=== PATIENT | female | born 1980 | race African-American/Black ===

== ENCOUNTER 2019-02-04 21:39 | Emergency (ER) | payer MEDICAID, OTHER ==
[~2019-02-04] VITALS: Ht 162.6 cm; Wt 90.7 kg
[2019-02-04 22:39] VITALS: BP 155/76
[2019-02-04 23:05] LABS: Basophils # (auto) 0.1 uL; Basophils % (auto) 0.7 % (0.0-2.0); Eosinophils # (auto) 0.1 uL; Eosinophils % (auto) 0.8 % (0.0-7.0); Hematocrit 38.4 % (36.0-46.0); Lymphocytes # (auto) 3.3 uL; Lymphocytes % (auto) 30.5 % (10.0-50.0); Mean Corpuscular Hgb Conc. 33.8 g/dL (32.0-36.0); Mean Corpuscular Volume 91.5 fL (80.0-100.0); Monocytes # (auto) 0.5 uL; Monocytes % (auto) 5.1 % (0.0-12.0); Neutrophils # (auto) 6.7 uL; Neutrophils % (auto) 62.9 % (37.0-80.0); Nucleated Red Blood Cells % 0.1 %; Platelet Count (auto) 362 10^3/uL (140-450); White Blood Cell 10.7 10^3/uL (4.4-10.8)
[2019-02-04 23:23] LABS: Potassium 4.3 mmol/L (3.5-5.1)
[2019-02-04 23:27] LABS: Albumin 3.1 g/dL (3.4-5.0); BUN/Creatinine Ratio 17.5; Calcium 8.4 mg/dL (8.5-10.1)
[2019-02-04 23:30] LABS: Bilirubin, Total 0.3 mg/dL (0.2-1.0); Total Protein 7.8 g/dL (6.4-8.2)
[2019-02-05] MEDS ORDERED: cefTRIAXone SOD 1,000 MG VL IM ONE (02:15)
[2019-02-05] MEDS ORDERED: cefTRIAXone 1GM/50ML D5W 50 ML IV ONE (02:15)
== END 2019-02-05 03:46 | disposition home or self-care (01) ==
LOC: EDBD 21:39 → ER 21:39
DX: L03.115 Cellulitis of right lower limb (principal); E11.9 Type 2 diabetes mellitus without complications; E78.5 Hyperlipidemia, unspecified; I10 Essential (primary) hypertension
CPT/HCPCS: 36415; 73700; 80053; 85025; 87040; 96372; 99284; J0696

== ENCOUNTER 2019-04-11 22:09 | Inpatient (IN) | payer MEDICAID ==
[~2019-04-11] VITALS: Ht 165.1 cm; Wt 98.9 kg
[2019-04-11 23:10] LABS: Basophils # (auto) 0 10 ^3/uL (0-0.2); Basophils % (auto) 0.4 % (0.0-2.0); Eosinophils # (auto) 0.1 10 ^3/uL (0-0.8); Eosinophils % (auto) 0.7 % (0.0-7.0); Hematocrit 39.8 % (36.0-46.0); Hemoglobin 13.4 g/dL (12.2-16.2); Lymphocytes # (auto) 2.4 10 ^3/uL (0.4-5.4); Lymphocytes % (auto) 27.2 % (10.0-50.0); Mean Corpuscular Hemoglobin 31.2 pg (28.0-32.0); Mean Corpuscular Hgb Conc. 33.6 g/dL (32.0-36.0); Mean Corpuscular Volume 92.8 fL (80.0-100.0); Monocytes # (auto) 0.6 10 ^3/uL (0-1.3); Monocytes % (auto) 6.6 % (0.0-12.0); Neutrophils # (auto) 5.7 10 ^3/uL (1.6-8.6); Neutrophils % (auto) 65.1 % (37.0-80.0); Platelet Count (auto) 418 10^3/uL (140-450); Red Blood Cells 4.29 10^6/uL (4.0-5.20); White Blood Cell 8.8 10^3/uL (4.4-10.8)
[2019-04-11 23:29] LABS: Alanine Aminotransferase 15 U/L (13-56); Anion Gap 6 (5-15); Aspartate Aminotransferase 8 U/L (15-37); BUN/Creatinine Ratio 13.5; Blood Urea Nitrogen 19 mg/dL (7-18); Calcium 8.7 mg/dL (8.5-10.1); Carbon Dioxide 28 mmol/L (21-32); Chloride 103 mmol/L (98-107); GFR African American 53 mL/min; GFR Non-African American 44 mL/min; Glucose 215 mg/dL (74-106); Potassium 3.5 mmol/L (3.5-5.1); Sodium 137 mmol/L (136-145)
[2019-04-11 23:34] LABS: Alkaline Phosphatase 112 U/L (45-117); Bilirubin, Total 0.5 mg/dL (0.2-1.0); Total Protein 7.7 g/dL (6.4-8.2)
[2019-04-11 23:49] LABS: INR 0.97 (0.9-1.15); Partial Thromboplastin Time 30.1 sec (23.64-32.05)
[2019-04-12] MEDS ORDERED: ONDANSETRON HCL 4 MG/2 ML VIAL IV ONE (00:30)
[2019-04-12] MEDS ORDERED: MORPHINE SULFATE 4 MG/ML SYR/VIAL IV ONE (00:30)
[2019-04-12] MEDS ORDERED: HYDROmorphone HCL 2 MG/ML VL IV ONE (01:00)
[2019-04-12] MEDS ORDERED: cloNIDine HCL 0.1 MG TAB PO ONE (02:15)
[2019-04-12] MEDS ORDERED: cefTRIAXone 1GM/50ML D5W 50 ML IV ONE (02:15)
[2019-04-12] MEDS ORDERED: cloNIDine HCL 0.1 MG TAB PO PRN (05:45)
[2019-04-12] MEDS ORDERED: MORPHINE SULF INJ 2 MG/ML SYRINGE 1ML IV PRN (05:45)
[2019-04-12] MEDS ORDERED: ONDANSETRON HCL 4 MG/2 ML VIAL IV PRN (05:45)
[2019-04-12] MEDS ORDERED: NITROGLYCERIN 0.4 MG SL TAB SL PRN (05:45)
[2019-04-12] MEDS ORDERED: TEMAZEPAM 15 MG CAP PO PRN (05:45)
[2019-04-12] MEDS ORDERED: ACETAMINOPHEN 325 MG TAB PO PRN (05:45)
[2019-04-12] MEDS ORDERED: DEXTROSE (50%) 50ML SYRG IV PRN (05:45)
[2019-04-12] MEDS ORDERED: CLINDAMYCIN 600MG IV 50 ML IV SCH (06:00)
[2019-04-12] MEDS: ACCU-CHEK COMFORT CURVE STRIP VI SCH ×4 (07:40→23:46)
[2019-04-12] MEDS: InsuLIN REG 1unit/0.01ml Soln (100units/ml) SC SCH ×4 (07:41→23:51)
[2019-04-12 08:00] VITALS: BP 125/88
[2019-04-12] MEDS ORDERED: ADENOSINE 89 MG in GIVE UN-DILUTED 0 ML IV STA (08:32)
[2019-04-12 09:00] VITALS: BP 125/88
[2019-04-12] MEDS ORDERED: cefTRIAXone 1GM/50ML D5W 50 ML IV SCH (09:00)
[2019-04-12] MEDS: ASPirin 81 mg TAB PO SCH (10:00)
[2019-04-12] MEDS: METOPROLOL TARTRATE 25 MG TAB PO SCH ×2 (10:00→22:19)
[2019-04-12] MEDS: GABAPENTIN 100 MG CAP PO SCH ×2 (10:00→22:19)
[2019-04-12] MEDS: PANTOPRAZOLE 40 MG TAB PO SCH (10:01)
[2019-04-12] MEDS: traMADol HCL 50 MG TAB PO PRN ×2 (10:08→17:54)
[2019-04-12 13:00] VITALS: BP 129/54
[2019-04-12] MEDS ORDERED: MAGNESIUM OXIDE 400 MG TAB PO ONE (15:15)
[2019-04-12 16:25] VITALS: BP 126/71
[2019-04-12 20:20] VITALS: BP 131/66
[2019-04-12] MEDS ORDERED: ATORVASTATIN 20 MG TAB PO SCH (22:00)
[2019-04-12] MEDS ORDERED: INSULIN LANTUS (GLARGINE) 1 /0.01ml (100units/ml) SC SCH (22:00)
[2019-04-12 22:09] VITALS: BP 131/66
[2019-04-13 05:10] VITALS: BP 136/89
[2019-04-13] MEDS: HYDROcodone-ACET 10/325MG TAB PO PRN ×2 (05:26→09:22)
[2019-04-13] MEDS: ACCU-CHEK COMFORT CURVE STRIP VI SCH ×2 (06:08→11:38)
[2019-04-13] MEDS: InsuLIN REG 1unit/0.01ml Soln (100units/ml) SC SCH ×2 (06:09→11:38)
[2019-04-13 06:33] LABS: Basophils # (auto) 0 10 ^3/uL (0-0.2); Basophils % (auto) 0.5 % (0.0-2.0); Eosinophils # (auto) 0.1 10 ^3/uL (0-0.8); Eosinophils % (auto) 1.3 % (0.0-7.0); Hematocrit 32.1 % (36.0-46.0); Hemoglobin 10.9 g/dL (12.2-16.2); Lymphocytes # (auto) 2.5 10 ^3/uL (0.4-5.4); Lymphocytes % (auto) 39.8 % (10.0-50.0); Mean Corpuscular Hemoglobin 31.3 pg (28.0-32.0); Mean Corpuscular Hgb Conc. 33.8 g/dL (32.0-36.0); Mean Corpuscular Volume 92.5 fL (80.0-100.0); Monocytes # (auto) 0.5 10 ^3/uL (0-1.3); Neutrophils # (auto) 3.1 10 ^3/uL (1.6-8.6); Neutrophils % (auto) 50.4 % (37.0-80.0); Platelet Count (auto) 337 10^3/uL (140-450); Red Blood Cells 3.47 10^6/uL (4.0-5.20); Red Cell Distribution Width 13.7 % (11.8-14.3); White Blood Cell 6.2 10^3/uL (4.4-10.8)
[2019-04-13 07:03] LABS: Potassium 3.2 mmol/L (3.5-5.1)
[2019-04-13 07:13] LABS: Albumin 2.4 g/dL (3.4-5.0); BUN/Creatinine Ratio 14.8; Bilirubin, Total 0.4 mg/dL (0.2-1.0); Total Protein 6.2 g/dL (6.4-8.2)
[2019-04-13 09:00] VITALS: BP_SYST 118; BP_SYST 120; BP_DIAS 79; BP_DIAS 80
[2019-04-13] MEDS: PANTOPRAZOLE 40 MG TAB PO SCH (09:22)
[2019-04-13] MEDS: GABAPENTIN 100 MG CAP PO SCH (09:22)
[2019-04-13] MEDS: ASPirin 81 mg TAB PO SCH (09:22)
[2019-04-13] MEDS: METOPROLOL TARTRATE 25 MG TAB PO SCH (09:24)
[2019-04-13] MEDS: traMADol HCL 50 MG TAB PO PRN (14:15)
[2019-04-13] MEDS ORDERED: POTASSIUM CHL 20 Meq TABLET PO ONE (15:00)
[2019-04-13 15:30] VITALS: BP 126/76
[2019-04-13 17:00] VITALS: BP 155/90
== END 2019-04-13 18:20 | disposition home or self-care (01) | DRG 203 ==
LOC: ER 22:14 → TELE 22:15 → TELE-WESTW 04-12 06:25
PROVIDERS: ADMIT Nurse Practitioner; ATTEND Internal Medicine
PROC: 0HBRXZZ Excision of Toe Nail, External Approach (ICD-10-PCS; principal; 2019-04-13)
DX: M94.0 Chondrocostal junction syndrome [Tietze] (principal); E11.42 Type 2 diabetes mellitus with diabetic polyneuropathy; E11.22 Type 2 diabetes mellitus with diabetic chronic kidney disease; E66.01 Morbid (severe) obesity due to excess calories; L03.115 Cellulitis of right lower limb; E11.621 Type 2 diabetes mellitus with foot ulcer; F17.210 Nicotine dependence, cigarettes, uncomplicated; B35.1 Tinea unguium; N18.3 Chronic kidney disease, stage 3 (moderate); L97.509 Non-pressure chronic ulcer of other part of unspecified foot with unspecified severity; E11.65 Type 2 diabetes mellitus with hyperglycemia; I12.9 Hypertensive chronic kidney disease with stage 1 through stage 4 chronic kidney disease, or unspecified chronic kidney disease; M77.30 Calcaneal spur, unspecified foot; E78.5 Hyperlipidemia, unspecified; I25.2 Old myocardial infarction; Z89.512 Acquired absence of left leg below knee; Z88.5 Allergy status to narcotic agent; Z88.0 Allergy status to penicillin; Z90.49 Acquired absence of other specified parts of digestive tract; Z68.36 Body mass index [BMI] 36.0-36.9, adult; Z83.3 Family history of diabetes mellitus; Z79.4 Long term (current) use of insulin
CPT/HCPCS: 36415; 71045; 73700; 78315; 78452; 80053; 82962; 83735; 83880; 84484; 85025; 85610; 85730; 93005; 93017; 93306; 96365; 96375; G0378; J0153; J0696; J1815; J2405

== ENCOUNTER → 2019-04-13 | Emergency (ER) | payer MEDICAID ==
[~2019-04-13] VITALS: Ht 165.1 cm; Wt 108.9 kg
[~2019-04-13] MED LIST: cloNIDine 0.2 mg/24hr 7DAY PATCH TD ONE; cloNIDine HCL 0.1 MG TAB PO ONE
[2019-04-13 21:23] LABS: Basophils # (auto) 0 10 ^3/uL (0-0.2); Basophils % (auto) 0.3 % (0.0-2.0); Eosinophils # (auto) 0.1 10 ^3/uL (0-0.8); Hematocrit 35.8 % (36.0-46.0); Hemoglobin 11.9 g/dL (12.2-16.2); Lymphocytes # (auto) 2.9 10 ^3/uL (0.4-5.4); Lymphocytes % (auto) 35.1 % (10.0-50.0); Mean Corpuscular Hgb Conc. 33.1 g/dL (32.0-36.0); Mean Corpuscular Volume 93.6 fL (80.0-100.0); Monocytes # (auto) 0.5 10 ^3/uL (0-1.3); Monocytes % (auto) 6.2 % (0.0-12.0); Neutrophils # (auto) 4.8 10 ^3/uL (1.6-8.6); Neutrophils % (auto) 57.4 % (37.0-80.0); Platelet Count (auto) 390 10^3/uL (140-450); Red Blood Cells 3.83 10^6/uL (4.0-5.20); Red Cell Distribution Width 13.8 % (11.8-14.3); White Blood Cell 8.3 10^3/uL (4.4-10.8)
[2019-04-13 21:38] LABS: Alanine Aminotransferase 15 U/L (13-56); Albumin 2.8 g/dL (3.4-5.0); Anion Gap 4 (5-15); Aspartate Aminotransferase 5 U/L (15-37); Blood Urea Nitrogen 18 mg/dL (7-18); Calcium 8.3 mg/dL (8.5-10.1); Carbon Dioxide 29 mmol/L (21-32); Chloride 104 mmol/L (98-107); GFR African American 55 mL/min; GFR Non-African American 45 mL/min; Glucose 152 mg/dL (74-106); Sodium 137 mmol/L (136-145)
[2019-04-13 21:43] LABS: Alkaline Phosphatase 99 U/L (45-117); Bilirubin, Total 0.3 mg/dL (0.2-1.0); Total Protein 7.2 g/dL (6.4-8.2)
[2019-04-14 02:00] VITALS: BP 120/66
== END | disposition home or self-care (01) ==
LOC: EDUNIT# 19:07 → EDBD 19:20 → ER 19:20
DX: R07.9 Chest pain, unspecified (principal); I10 Essential (primary) hypertension; E11.9 Type 2 diabetes mellitus without complications; E78.5 Hyperlipidemia, unspecified; I25.2 Old myocardial infarction; F17.210 Nicotine dependence, cigarettes, uncomplicated; Z90.49 Acquired absence of other specified parts of digestive tract; Z90.89 Acquired absence of other organs
CPT/HCPCS: 36415; 71045; 80053; 84484; 85025; 93005

== ENCOUNTER → 2019-04-14 | Emergency (ER) | payer MEDICAID ==
[~2019-04-14] VITALS: Ht 165.1 cm; Wt 108.9 kg
[~2019-04-14] MED LIST changes: +KETOROLAC TROMETH 15 mg/ml 1ML VL IV ONE; +cefTRIAXone 1GM/50ML D5W 50 ML IV ONE; -cloNIDine 0.2 mg/24hr 7DAY PATCH TD ONE; -cloNIDine HCL 0.1 MG TAB PO ONE
[2019-04-14 10:12] VITALS: BP 138/77
== END | disposition home or self-care (01) ==
LOC: ER 06:33
DX: R07.89 Other chest pain (principal); E11.65 Type 2 diabetes mellitus with hyperglycemia; L03.115 Cellulitis of right lower limb; E11.21 Type 2 diabetes mellitus with diabetic nephropathy; M10.371 Gout due to renal impairment, right ankle and foot; E66.01 Morbid (severe) obesity due to excess calories; I25.2 Old myocardial infarction; F17.210 Nicotine dependence, cigarettes, uncomplicated; I10 Essential (primary) hypertension; E78.5 Hyperlipidemia, unspecified; Z90.49 Acquired absence of other specified parts of digestive tract; Z90.89 Acquired absence of other organs; Z89.519 Acquired absence of unspecified leg below knee; Z88.0 Allergy status to penicillin; Z88.6 Allergy status to analgesic agent; Z68.39 Body mass index [BMI] 39.0-39.9, adult
CPT/HCPCS: 36415; 84550; 93005; 96365; 96366; 96375; 99284; J0696; J1885

== ENCOUNTER 2019-06-20 21:11 | Inpatient (IN) | payer MEDICAID ==
[~2019-06-20] VITALS: Ht 165.1 cm; Wt 99.7 kg
[2019-06-20 21:45] LABS: Basophils # (auto) 0 10 ^3/uL (0-0.2); Basophils % (auto) 0.6 % (0.0-2.0); Eosinophils # (auto) 0.1 10 ^3/uL (0-0.8); Eosinophils % (auto) 0.7 % (0.0-7.0); Hematocrit 39.2 % (36.0-46.0); Hemoglobin 13.2 g/dL (12.2-16.2); Lymphocytes # (auto) 2.5 10 ^3/uL (0.4-5.4); Mean Corpuscular Hemoglobin 30.9 pg (28.0-32.0); Mean Corpuscular Hgb Conc. 33.7 g/dL (32.0-36.0); Mean Corpuscular Volume 91.6 fL (80.0-100.0); Monocytes # (auto) 0.4 10 ^3/uL (0-1.3); Monocytes % (auto) 5.3 % (0.0-12.0); Neutrophils # (auto) 5.3 10 ^3/uL (1.6-8.6); Neutrophils % (auto) 63.4 % (37.0-80.0); Platelet Count (auto) 336 10^3/uL (140-450); Red Blood Cells 4.28 10^6/uL (4.0-5.20); Red Cell Distribution Width 13.1 % (11.8-14.3); White Blood Cell 8.4 10^3/uL (4.4-10.8)
[2019-06-20 22:04] LABS: Alanine Aminotransferase 13 U/L (13-56); Albumin 2.6 g/dL (3.4-5.0); Anion Gap 7 (5-15); Aspartate Aminotransferase 8 U/L (15-37); BUN/Creatinine Ratio 14.4; Blood Urea Nitrogen 18 mg/dL (7-18); Calcium 8.4 mg/dL (8.5-10.1); Carbon Dioxide 28 mmol/L (21-32); Chloride 103 mmol/L (98-107); GFR African American 61 mL/min; GFR Non-African American 51 mL/min; Glucose 274 mg/dL (74-106); Potassium 3.7 mmol/L (3.5-5.1); Sodium 138 mmol/L (136-145)
[2019-06-20 22:09] LABS: Alkaline Phosphatase 108 U/L (45-117); Bilirubin, Total 0.3 mg/dL (0.2-1.0); Total Protein 7.2 g/dL (6.4-8.2)
[2019-06-21 01:08] LABS: INR 0.96 (0.9-1.15); Partial Thromboplastin Time 29.3 sec (23.64-32.05)
[2019-06-21] MEDS ORDERED: HYDROmorphone HCL 2 MG/ML VL IV ONE (03:30)
[2019-06-21] MEDS ORDERED: ONDANSETRON HCL 4 MG/2 ML VIAL IV ONE (03:30)
[2019-06-21] MEDS ORDERED: ACETAMINOPHEN 325 MG TAB PO PRN (07:30)
[2019-06-21] MEDS ORDERED: TEMAZEPAM 15 MG CAP PO PRN (07:30)
[2019-06-21] MEDS ORDERED: MORPHINE SULFATE 4 MG/ML SYR/VIAL IV PRN (07:30)
[2019-06-21] MEDS ORDERED: ONDANSETRON HCL 4 MG/2 ML VIAL IV PRN (07:30)
[2019-06-21] MEDS ORDERED: DEXTROSE (50%) 50ML SYRG IV PRN ×3 (07:30→09:30)
[2019-06-21] MEDS ORDERED: NALBUPHINE HCL 10 MG/1ml INJECTION IV PRN (08:00)
[2019-06-21] MEDS: HYDROcodone-ACET 5/325MG TAB PO PRN ×2 (08:40→22:25)
[2019-06-21] MEDS ORDERED: HYDROmorphone HCL 2 MG/ML VL IV PRN (09:30)
[2019-06-21] MEDS ORDERED: LABETALOL HCL 5 MG/ML 4ML SYRINGE IV PRN (09:30)
[2019-06-21] MEDS: ASPirin 81 mg TAB PO SCH (09:42)
[2019-06-21] MEDS: BENAZEPRIL HCL 10 MG TAB PO SCH (09:42)
[2019-06-21] MEDS: HCTZ 25 MG TAB PO SCH (09:42)
[2019-06-21] MEDS: PANTOPRAZOLE 40 MG TAB PO SCH (09:43)
[2019-06-21] MEDS: METOPROLOL TARTRATE 25 MG TAB PO SCH ×2 (10:13→22:00)
[2019-06-21] MEDS: HYDROmorphone HCL 2 MG/ML VL IV PRN ×3 (10:14→19:55)
--- NOTE | 2019-06-21 10:20 | NUR ---
MS admit from ER SILVER GALVAN admitted to tele/MS after SBAR received from LILLIANA Johnson. Patient oriented to MG HERRERA RN primary RN, unit, room, bed, and unit policies regarding patient care and visiting hours. Bed in lowest/locked position, bed rails up x2, call light within reach. No c/o pain or SOB. Patient weighed by bedscale and encouraged to call if they need something. All questions and concerns addressed, patient verbalized understanding.
[2019-06-21 10:27] VITALS: BP 133/74
--- NOTE | 2019-06-21 10:30 | NUR ---
WOUND CARE NOTE: IN TO SEE PATIENT AT THIS TIME AFTER ADMIT TO CENTRAL TELE UNIT FROM ER. PATIENT ADMITTED TO [facility] WITH DIAGNOSIS OF DFU TO RIGHT FOOT. CURRENT CELIA SCORE IS 18. PATIENT IS S/P LEFT BKA FOR INFECTED DFU. THERE IS A WELL HEALED SURGICAL INCISION SCAR NOTED. RIGHT # 1 TOE IS NOTED TO HAVE A SMALL DFU ULCER OVER RAISED SCARS. WOUND PHOTO WAS TAKEN WHILE PATIENT STILL IN ER BY BEDSIDE NURSE FOR REFERENCE. WOUND MEASURES 1 X 0.6 CM, WITH PALE RED WOUND BED OVER DARK BROWN/BLACK CALLOUSED PERIWOUND SKIN. SCANT SEROUS DRAINAGE NOTED. CLEANSED WITH WOUND CLEANSER, PATTED DRY WITH STERILE GAUZE. APPLIED THERAHONEY, TELFA OVER WOUND. WRAPPED FOOT/# 1 TOE WITH SMALL ELASTIC GAUZE ROLL, SECURING WITH TAPE. ELEVATED FOOT (RT) ONTO PILLOW FOR EDEMA CONTROL. RECOMMEND: EOD/PRN DRESSING CHANGE TO RIGHT # 1 TOE WOUND, ELEVATION OF RIGHT FOOT UP ONTO PILLOW FOR EDEMA CONTROL, PODIATRY CONSULT (IN OR OUT PATIENT), SKIN/WOUND CARE PLAN, CONTINUED MONITORING BY WOUND CARE TEAM. Addendum: 06/21/19 at 1552 by Rachell Montano RN Amended: Links added.
[2019-06-21] MEDS ORDERED: INSU100I45 IJ (11:36)
[2019-06-21] MEDS ORDERED: INSLANTI SC (11:36)
[2019-06-21] MEDS ORDERED: BENA20TA14 PO (11:36)
[2019-06-21] MEDS ORDERED: HYDR-531 PO (11:36)
[2019-06-21] MEDS: ACCU-CHEK COMFORT CURVE STRIP VI SCH ×2 (12:00→18:00)
[2019-06-21] MEDS ORDERED: ACCU-CHEK COMFORT CURVE STRIP VI SCH ×2 (12:00)
[2019-06-21] MEDS ORDERED: InsuLIN REG 1unit/0.01ml Soln (100units/ml) SC SCH (12:00)
[2019-06-21 12:18] VITALS: BP 130/74
[2019-06-21] MEDS: levoFLOXacin 500MG 100 ML IV SCH (12:35)
[2019-06-21] MEDS: SODIUM CHLORIDE 0.9% 1,000 ML IV SCH ×2 (12:37→19:45)
[2019-06-21] MEDS: InsuLIN REG 1unit/0.01ml Soln (100units/ml) SC SCH ×2 (12:41→18:00)
--- NOTE | 2019-06-21 14:00 | NUR ---
PAIN PATIENT C/O PAIN 08/16 TO RIGHT FOOT, ACHY. WILL MEDICATE PER MD ORDER
[2019-06-21] MEDS ORDERED: BENA40TA83 PO (14:05)
[2019-06-21] MEDS ORDERED: ATOR20TA50 PO (14:07)
[2019-06-21] MEDS ORDERED: HYDR25TA4 PO (14:07)
[2019-06-21] MEDS ORDERED: GABA800T97 PO (14:10)
[2019-06-21] MEDS ORDERED: ASPI-543 PO (14:10)
[2019-06-21] MEDS: CLINDAMYCIN 600MG IV 50 ML IV SCH ×2 (14:19→22:00)
[2019-06-21 16:38] VITALS: BP 167/84
[2019-06-21 16:40] VITALS: BP 119/62
--- NOTE | 2019-06-21 19:55 | NUR ---
PAIN ASSESSMENT The patient reports having 7/10 right foot pain and requested pain medication. Will treat with PRN Dilaudid.
--- NOTE | 2019-06-21 20:55 | NUR ---
PAIN REASSESSMENT The patient's pain has improved to 5/10 and is resting comfortably in bed. Will continue to monitor the patient's status.
[2019-06-21 21:38] VITALS: BP 103/62
[2019-06-21] MEDS: ATORVASTATIN 20 MG TAB PO SCH (22:29)
[2019-06-22] MEDS: HYDROmorphone HCL 2 MG/ML VL IV PRN ×5 (00:25→20:05)
--- NOTE | 2019-06-22 00:25 | NUR ---
PAIN ASSESSMENT The patient reports having 7/10 right foot pain and requested pain medication. Will treat with PRN Dilaudid.
--- NOTE | 2019-06-22 01:25 | NUR ---
PAIN REASSESSMENT The patient's pain has improved to 5/10. Will continue to monitor the patient's pain.
--- NOTE | 2019-06-22 04:28 | NUR ---
PAIN ASSESSMENT The patient reports having 9/10 right foot pain and requested pain medication. Will treat with PRN pain medication.
[2019-06-22 04:46] VITALS: BP 128/61
--- NOTE | 2019-06-22 05:30 | NUR ---
PAIN REASSESSMENT The patient's pain has improved to 3/10. Will continue monitor the patient's pain.
[2019-06-22] MEDS: SODIUM CHLORIDE 0.9% 1,000 ML IV SCH ×2 (05:45→08:58)
[2019-06-22 05:48] LABS: Basophils # (auto) 0 10 ^3/uL (0-0.2); Basophils % (auto) 0.2 % (0.0-2.0); Eosinophils # (auto) 0.1 10 ^3/uL (0-0.8); Eosinophils % (auto) 1.2 % (0.0-7.0); Hematocrit 35.1 % (36.0-46.0); Hemoglobin 11.6 g/dL (12.2-16.2); Lymphocytes % (auto) 39.8 % (10.0-50.0); Mean Corpuscular Hemoglobin 30.4 pg (28.0-32.0); Mean Corpuscular Volume 92.1 fL (80.0-100.0); Monocytes # (auto) 0.5 10 ^3/uL (0-1.3); Monocytes % (auto) 6.9 % (0.0-12.0); Neutrophils # (auto) 3.9 10 ^3/uL (1.6-8.6); Neutrophils % (auto) 51.9 % (37.0-80.0); Nucleated Red Blood Cells % 0.1 %; Platelet Count (auto) 288 10^3/uL (140-450); Red Blood Cells 3.81 10^6/uL (4.0-5.20); Red Cell Distribution Width 13.4 % (11.8-14.3); White Blood Cell 7.4 10^3/uL (4.4-10.8)
[2019-06-22] MEDS: ACCU-CHEK COMFORT CURVE STRIP VI SCH ×5 (06:00→23:25)
[2019-06-22] MEDS: InsuLIN REG 1unit/0.01ml Soln (100units/ml) SC SCH ×5 (06:00→23:24)
[2019-06-22] MEDS: CLINDAMYCIN 600MG IV 50 ML IV SCH ×3 (06:00→21:57)
[2019-06-22 06:10] LABS: Calcium 7.7 mg/dL (8.5-10.1); Potassium 3.6 mmol/L (3.5-5.1)
[2019-06-22 06:11] LABS: BUN/Creatinine Ratio 16.5
--- NOTE | 2019-06-22 08:00 | NUR ---
Opening Shift Note Assumed care of patient, awake, asleep, even unlabored breaths.. No S/S of distress/SOB or pain. Will continue to monitor for changes Q1hr and PRN.
[2019-06-22 08:25] VITALS: BP 120/65
--- NOTE | 2019-06-22 08:45 | NUR ---
PAIN PATIENT C/O PAIN /10 TO RIGHT FOOT, ACHY AND TIGHT. WILL MEDICATE PER MD ORDERS
[2019-06-22] MEDS: levoFLOXacin 500MG 100 ML IV SCH (08:54)
[2019-06-22] MEDS: ASPirin 81 mg TAB PO SCH (08:55)
[2019-06-22] MEDS: BENAZEPRIL HCL 10 MG TAB PO SCH (08:55)
[2019-06-22] MEDS: METOPROLOL TARTRATE 25 MG TAB PO SCH ×2 (08:55→21:58)
[2019-06-22] MEDS: HCTZ 25 MG TAB PO SCH (08:56)
[2019-06-22] MEDS: PANTOPRAZOLE 40 MG TAB PO SCH (08:56)
[2019-06-22] MEDS ORDERED: POTASSIUM CHLORIDE 40 MEQ, LIDOCAINE 1% (LOCAL ANESTH.) 4 ML in SODIUM CHL 0.9% 100 ML IV ONE (09:30)
--- NOTE | 2019-06-22 09:30 | NUR ---
MD ROUNDS DR HUNTER AT BEDSIDE DISCUSSING POC WITH PATIENT. NEW ORDERS RECEIVED/WILL CARRY OUT. WILL CONTINUE TO MONITOR
--- NOTE | 2019-06-22 10:11 | NUR ---
I faxed wheelchair order to [facility]-requesting authorization for [facility].
--- NOTE | 2019-06-22 10:20 | NUR ---
MD ROUNDS DR DUNHAM AT BEDSIDE, DISCUSSING POC WITH PATIENT RE: RIGHT FOOT WOUND
--- NOTE | 2019-06-22 10:50 | NUR ---
IV insertion IV access obtained, via clean sterile technique by inserting 22 gauge catheter at RFA after 3 attempts. IV secured properly. No trauma to site. Patient tolerated well. IV removal IV DC'd with clean sterile technique, catheter fully intact. Pressure dressing applied to site. Patient tolerated well.
--- NOTE | 2019-06-22 11:00 | NUR ---
PAIN PATIENT C/O PAIN 05/17 TO RIGHT FOOT, PATIENT STATED "IT'S STILL ACHY." WILL MEDICATE PER MD ORDERS
[2019-06-22] MEDS: HYDROcodone-ACET 5/325MG TAB PO PRN ×2 (11:12→17:50)
--- NOTE | 2019-06-22 14:18 | NUR ---
Assessment Patient refused to speak to social service. regarding order for wheelchair. TR Franklin will obtain authorization from [facility]. Faxed clinical information to [employer] Ph:). Per Collins with [employer] wheelchair will be deliver to patient home between today Tuesday or Tuesday of next week.
--- NOTE | 2019-06-22 14:30 | NUR ---
PAIN PATIENT C/O PAIN TO RIGHT FOOT 09/16. PATIENT STATED "IT IS ACHY AND TIGHT STILL." WILL MEDICATE PER MD ORDERS
--- NOTE | 2019-06-22 14:31 | NUR ---
Nutrition Assessment Notes Please refer to link for full assessment notes. Est Energy needs: 4411-4731 kcals (14-18 kcal/kgBW) Est Protein needs: 107-134 gms/day (2.0-2.5 gm/kgBW) Will continue to monitor and reassess prn. Addendum: 06/22/19 at [address] Amended: Links added.
[2019-06-22 16:40] VITALS: BP 116/69
--- NOTE | 2019-06-22 17:35 | NUR ---
PAIN PATIENT C/O PAIN 05/17 TO RIGHT FOOT, PATIENT STATED "IT'S TIGHT." WILL MEDICATE PER MD ORDERS
--- NOTE | 2019-06-22 19:32 | NUR ---
Opening Shift Note Assumed care of patient, awake and alert and oriented x4. No S/S of distress/SOB. Patient pain level 9 on a pain scale 0-10, will medicate per MD orders. Bedside commode at bedside. Instructed on POC and to call for assist PRN, will continue to monitor for changes Q1hr and PRN. Safety precautions in place bed is in lowest position and locked, bed rails 2x. Call light and bedside table are within reach.
--- NOTE | 2019-06-22 20:35 | NUR ---
Pain Reassessment Pain level 0. Patient resting comfortably in bed no s/s of distress or SOB. Will continue to monitor Q1 and PRN.
[2019-06-22] MEDS: ATORVASTATIN 20 MG TAB PO SCH (21:57)
[2019-06-22 22:00] VITALS: BP 119/62
[2019-06-23] MEDS: SODIUM CHLORIDE 0.9% 1,000 ML IV SCH ×3 (02:10→22:05)
[2019-06-23] MEDS: HYDROmorphone HCL 2 MG/ML VL IV PRN ×4 (02:27→22:01)
--- NOTE | 2019-06-23 02:29 | NUR ---
PAIN Pain level 8, pain scale 0-10, pain located on the right foot. Medicated per MD orders. Will continue to monitor Q1 and PRN.
[2019-06-23 06:00] VITALS: BP 109/66
[2019-06-23] MEDS: ACCU-CHEK COMFORT CURVE STRIP VI SCH ×3 (06:07→17:24)
[2019-06-23] MEDS: CLINDAMYCIN 600MG IV 50 ML IV SCH ×3 (06:09→22:05)
[2019-06-23] MEDS: InsuLIN REG 1unit/0.01ml Soln (100units/ml) SC SCH ×3 (06:14→17:26)
[2019-06-23 07:19] LABS: Basophils # (auto) 0 10 ^3/uL (0-0.2); Basophils % (auto) 0.2 % (0.0-2.0); Eosinophils # (auto) 0.1 10 ^3/uL (0-0.8); Eosinophils % (auto) 1.2 % (0.0-7.0); Hematocrit 32.3 % (36.0-46.0); Hemoglobin 10.7 g/dL (12.2-16.2); Mean Corpuscular Hemoglobin 30.4 pg (28.0-32.0); Monocytes # (auto) 0.5 10 ^3/uL (0-1.3); Neutrophils # (auto) 4.4 10 ^3/uL (1.6-8.6); Neutrophils % (auto) 55.6 % (37.0-80.0); Nucleated Red Blood Cells % 0.1 %; Platelet Count (auto) 285 10^3/uL (140-450); Red Blood Cells 3.51 10^6/uL (4.0-5.20); Red Cell Distribution Width 13.2 % (11.8-14.3)
--- NOTE | 2019-06-23 07:21 | NUR ---
End of Shift Note Endorsed care to dayshift RN. At this time patient has no s/s of distress or SOB. Respirations are even and unlabored. Patient awakens to voice and touch, no complaints at this time.
[2019-06-23 07:34] LABS: Calcium 7.3 mg/dL (8.5-10.1); Potassium 4.2 mmol/L (3.5-5.1)
[2019-06-23 07:39] LABS: BUN/Creatinine Ratio 16.1; Bilirubin, Total 0.3 mg/dL (0.2-1.0); Total Protein 5.6 g/dL (6.4-8.2)
[2019-06-23 09:00] VITALS: BP 117/62
--- NOTE | 2019-06-23 09:40 | NUR ---
PAIN PATIENT C/O PAIN 05/17 TO RIGHT FOOT, PATIENT STATED "IT'S ACHY." WILL MEDICATE PER MD ORDERS
[2019-06-23] MEDS: levoFLOXacin 500MG 100 ML IV SCH (09:50)
[2019-06-23] MEDS: METOPROLOL TARTRATE 25 MG TAB PO SCH ×2 (09:51→22:05)
[2019-06-23] MEDS: HYDROcodone-ACET 5/325MG TAB PO PRN ×2 (09:51→17:24)
[2019-06-23] MEDS: BENAZEPRIL HCL 10 MG TAB PO SCH (09:51)
[2019-06-23] MEDS: PANTOPRAZOLE 40 MG TAB PO SCH (09:52)
[2019-06-23] MEDS: ASPirin 81 mg TAB PO SCH (09:52)
[2019-06-23] MEDS: HCTZ 25 MG TAB PO SCH (09:52)
--- NOTE | 2019-06-23 11:40 | NUR ---
HOME HEALTH EDUCATED AND INFORMED PATIENT ABOUT HOME HEALTH. PER PATIENT "I DON'T KNOW IF I WANT THAT RIGHT NOW." RE-EDUCATED PATIENT THAT HOME HEALTH WOULD HELP AND ASSIST HER. PATIENT VERBALIZED UNDERSTANDING. WILL CONTINUE TO MONITOR
--- NOTE | 2019-06-23 11:40 | NUR ---
PAIN PATIENT RETURNED FROM MRI AND C/O PAIN TO RIGHT FOOT 09/16. PATIENT STATED "IT IS ACHY" WILL MEDICATE PER MD ORDERS
[2019-06-23 14:00] VITALS: BP 102/63
[2019-06-23 17:00] VITALS: BP 125/70
--- NOTE | 2019-06-23 17:15 | NUR ---
PAIN PATIENT C/O PAIN 05/17 TO RIGHT FOOT, PATIENT STATED "IT'S ACHY." WILL MEDICATE PER MD ORDERS
[2019-06-23 22:00] VITALS: BP 115/57
[2019-06-23] MEDS: ATORVASTATIN 20 MG TAB PO SCH (22:04)
[2019-06-24] MEDS: InsuLIN REG 1unit/0.01ml Soln (100units/ml) SC SCH ×5 (00:44→23:38)
[2019-06-24 05:00] VITALS: BP 128/59
[2019-06-24] MEDS: CLINDAMYCIN 600MG IV 50 ML IV SCH ×3 (06:00→22:10)
--- NOTE | 2019-06-24 06:00 | NUR ---
Dressing change to right foot per MD orders. Patient tolerated well. Will continue to monitor Q1 and PRN.
[2019-06-24] MEDS: HYDROmorphone HCL 2 MG/ML VL IV PRN ×4 (06:06→22:11)
[2019-06-24] MEDS: ACCU-CHEK COMFORT CURVE STRIP VI SCH ×5 (06:06→23:34)
[2019-06-24 06:34] LABS: Basophils # (auto) 0 10 ^3/uL (0-0.2); Basophils % (auto) 0.2 % (0.0-2.0); Eosinophils # (auto) 0.1 10 ^3/uL (0-0.8); Eosinophils % (auto) 0.9 % (0.0-7.0); Hematocrit 33.2 % (36.0-46.0); Lymphocytes # (auto) 2.4 10 ^3/uL (0.4-5.4); Lymphocytes % (auto) 31.1 % (10.0-50.0); Mean Corpuscular Hemoglobin 30.4 pg (28.0-32.0); Mean Corpuscular Hgb Conc. 33.1 g/dL (32.0-36.0); Mean Corpuscular Volume 91.8 fL (80.0-100.0); Monocytes # (auto) 0.5 10 ^3/uL (0-1.3); Monocytes % (auto) 6.2 % (0.0-12.0); Neutrophils # (auto) 4.7 10 ^3/uL (1.6-8.6); Neutrophils % (auto) 61.6 % (37.0-80.0); Platelet Count (auto) 276 10^3/uL (140-450); Red Blood Cells 3.62 10^6/uL (4.0-5.20); Red Cell Distribution Width 13.1 % (11.8-14.3); White Blood Cell 7.6 10^3/uL (4.4-10.8)
[2019-06-24 06:53] LABS: Calcium 7.6 mg/dL (8.5-10.1)
[2019-06-24 06:58] LABS: Bilirubin, Total 0.3 mg/dL (0.2-1.0); Total Protein 5.8 g/dL (6.4-8.2)
--- NOTE | 2019-06-24 08:05 | NUR ---
OPENING SHIFT NOTE Assumed care of patient. PT is awake and alert. No S/S of distress/SOB. Instructed on POC and to call for assist PRN, will continue to monitor for changes Q1hr and PRN. Safety precautions in place bed is in lowest position and locked, bed rails 2x. Call light and bedside table are within reach.
[2019-06-24 09:00] VITALS: BP 119/64
[2019-06-24] MEDS: levoFLOXacin 500MG 100 ML IV SCH (10:40)
[2019-06-24] MEDS: BENAZEPRIL HCL 10 MG TAB PO SCH (10:43)
[2019-06-24] MEDS: HCTZ 25 MG TAB PO SCH (10:44)
[2019-06-24] MEDS: PANTOPRAZOLE 40 MG TAB PO SCH (10:45)
[2019-06-24] MEDS: ASPirin 81 mg TAB PO SCH (10:45)
[2019-06-24] MEDS: SODIUM CHLORIDE 0.9% 1,000 ML IV SCH ×2 (10:45→17:57)
[2019-06-24] MEDS: METOPROLOL TARTRATE 25 MG TAB PO SCH ×2 (10:46→22:11)
[2019-06-24 13:00] VITALS: BP_SYST 140; BP_SYST 159; BP_DIAS 60; BP_DIAS 90
[2019-06-24 17:00] VITALS: BP 104/53
--- NOTE | 2019-06-24 19:30 | NUR ---
Opening Shift Note Assumed care of patient, awake and alert. No S/S of distress/SOB or pain. Insructed on POC and to callfor assist PRN, will continue to monitor for changes Q1hr and PRN. Fall and safety precautions in place. Call light within reach.
[2019-06-24 22:00] VITALS: BP 124/72
--- NOTE | 2019-06-24 22:00 | NUR ---
WOUND Wound to right great toe cleansed and dressed per MD recommendation. Patient tolerated well. Will continue to monitor
[2019-06-24] MEDS: ATORVASTATIN 20 MG TAB PO SCH (22:11)
[2019-06-24] MEDS: INSULIN LANTUS (GLARGINE) 1 /0.01ml (100units/ml) SC SCH (22:30)
[2019-06-25] MEDS: HYDROmorphone HCL 2 MG/ML VL IV PRN ×4 (02:37→20:47)
--- NOTE | 2019-06-25 02:50 | NUR ---
WOUND Dressing to right great toe fell off. Wound cleansed and dressed per MD recommendation. Patient tolerated well. Will continue to monitor
[2019-06-25] MEDS: SODIUM CHLORIDE 0.9% 1,000 ML IV SCH ×3 (04:43→23:16)
[2019-06-25 05:00] VITALS: BP 115/70
[2019-06-25] MEDS: CLINDAMYCIN 600MG IV 50 ML IV SCH ×3 (05:54→23:14)
[2019-06-25] MEDS: InsuLIN REG 1unit/0.01ml Soln (100units/ml) SC SCH ×3 (06:00→18:05)
[2019-06-25] MEDS: ACCU-CHEK COMFORT CURVE STRIP VI SCH ×3 (06:08→18:04)
[2019-06-25 06:46] LABS: Basophils # (auto) 0 10 ^3/uL (0-0.2); Basophils % (auto) 0.2 % (0.0-2.0); Eosinophils # (auto) 0.1 10 ^3/uL (0-0.8); Eosinophils % (auto) 0.8 % (0.0-7.0); Hematocrit 33.3 % (36.0-46.0); Hemoglobin 11.1 g/dL (12.2-16.2); Lymphocytes # (auto) 2.6 10 ^3/uL (0.4-5.4); Lymphocytes % (auto) 34.8 % (10.0-50.0); Mean Corpuscular Hemoglobin 30.2 pg (28.0-32.0); Mean Corpuscular Hgb Conc. 33.3 g/dL (32.0-36.0); Mean Corpuscular Volume 90.5 fL (80.0-100.0); Monocytes # (auto) 0.4 10 ^3/uL (0-1.3); Monocytes % (auto) 5.6 % (0.0-12.0); Neutrophils # (auto) 4.4 10 ^3/uL (1.6-8.6); Neutrophils % (auto) 58.6 % (37.0-80.0); Platelet Count (auto) 302 10^3/uL (140-450); Red Blood Cells 3.68 10^6/uL (4.0-5.20); Red Cell Distribution Width 13.2 % (11.8-14.3); White Blood Cell 7.6 10^3/uL (4.4-10.8)
[2019-06-25 07:04] LABS: BUN/Creatinine Ratio 13.6; Calcium 7.8 mg/dL (8.5-10.1); Potassium 3.9 mmol/L (3.5-5.1)
--- NOTE | 2019-06-25 08:04 | NUR ---
OPENING SHIFT NOTE Resumed care of patient. PT is awake and alert. No S/S of distress/SOB. PT C/O 08/16 pain. Will administer PRN medication as ordered. Instructed on POC and to call for assist PRN, will continue to monitor for changes Q1hr and PRN. Bed is in lowest position and locked, bed rails 2x. Call light and bedside table are within reach.
[2019-06-25] MEDS: BENAZEPRIL HCL 10 MG TAB PO SCH (09:07)
[2019-06-25] MEDS: PANTOPRAZOLE 40 MG TAB PO SCH (09:08)
[2019-06-25] MEDS: ASPirin 81 mg TAB PO SCH (09:08)
[2019-06-25] MEDS: HCTZ 25 MG TAB PO SCH (09:08)
[2019-06-25] MEDS: METOPROLOL TARTRATE 25 MG TAB PO SCH ×2 (09:08→23:15)
[2019-06-25] MEDS: levoFLOXacin 500MG 100 ML IV SCH (09:09)
[2019-06-25 09:31] VITALS: BP 142/90
--- NOTE | 2019-06-25 09:58 | NUR ---
I received a call from Sneha at [facility] letting me know that they authorized a wheelchair for this patient in February 2019-it came from [facility] (phone [phone])-they can not authorize another wheelchair. If there is an issue with the wheelchair, patient can contact the company-I provided this information to nurse Will to give to patient.
[2019-06-25 13:00] VITALS: BP 125/65
--- NOTE | 2019-06-25 14:45 | NUR ---
LEFT NICKI FOR DR HUNTER REGARDING PT TRANSFER TO SNF. AWAITING CALLBACK.
--- NOTE | 2019-06-25 14:58 | NUR ---
SPOKE WITH DR HUNTER. GAVE INSTRUCTIONS TO HOLD PT FOR DC TOMORROW 06/25 TO SNF.
--- NOTE | 2019-06-25 15:04 | NUR ---
Nutrition Followup Notes Pt wt is 99.7 kg Pt was awake when rounded this am. Pt with no distress, appetite is good aeb 100% x5 PO intake. Will continue to closely monitor pertinent labs, PO intake and skin status prn. Will followup in 3-5 days Est Energy needs: 1026-5479 kcals (14-18 kcal/kgBW) Est Protein needs: 107-134 gms/day (2.0-2.5 gm/kgBW) Will continue to monitor and reassess prn. LABS: Gluc 131 H, Ca 7.8 H, Alb 2.0 L GI: Last BM noted on 06/21 per RN doc BS: 16 mod risk. Please refer to wound assessment report for full details. PES: Problem 1) Obesity r/t energy itake in excess of energy needs aeb 182% IBW and BMI of 37.8 kg/m2 2) Altered nutrition related lab values r/t current/chronic medical condition aeb elev RFTs, low GFR, hyperglycemia, mod hypoalbuminemia Comments Will continue to closely monitor pertinent labs, PO intake and skin status prn. Will followup in 3-5 days 1) Continue to closely monitor pt PO intake to meet at least 75% of meals 2) Consider daily MVI with 500mg VitC BID 3) Refer pt to a RD for nutrition education upon D/C 4) Continue current plan of care
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
[2019-06-25 17:02] VITALS: BP 100/46
[2019-06-25 22:00] VITALS: BP 126/74
[2019-06-25] MEDS: ATORVASTATIN 20 MG TAB PO SCH (22:00)
[2019-06-25] MEDS: INSULIN LANTUS (GLARGINE) 1 /0.01ml (100units/ml) SC SCH (23:16)
[2019-06-26] MEDS: ACCU-CHEK COMFORT CURVE STRIP VI SCH ×3 (00:33→11:43)
[2019-06-26] MEDS: InsuLIN REG 1unit/0.01ml Soln (100units/ml) SC SCH ×3 (00:34→11:44)
--- NOTE | 2019-06-26 03:48 | NUR ---
Received report from Serene Corado to assume care.
[2019-06-26] MEDS: HYDROmorphone HCL 2 MG/ML VL IV PRN ×2 (04:06→10:55)
[2019-06-26 05:00] VITALS: BP 115/57
[2019-06-26] MEDS: CLINDAMYCIN 600MG IV 50 ML IV SCH ×2 (05:43→14:00)
[2019-06-26 09:00] VITALS: BP 124/71
[2019-06-26] MEDS: SODIUM CHLORIDE 0.9% 1,000 ML IV SCH (09:45)
--- NOTE | 2019-06-26 10:35 | NUR ---
D/C Planning Per Maryse Woo ) patient has been accepted to room 405 bed B accepting , Dr. Sanderson. Faxed transportation form request to [facility] requesting for a 11:30 am via gurney. Per Taina with [facility] transportation has been arranged with [facility] transport Ph:) via [facility] with a 12:30pm. Informed LILLIANA Hargrove.
[2019-06-26] MEDS: levoFLOXacin 500MG 100 ML IV SCH (10:49)
[2019-06-26] MEDS: ASPirin 81 mg TAB PO SCH (10:49)
[2019-06-26] MEDS: PANTOPRAZOLE 40 MG TAB PO SCH (10:49)
[2019-06-26] MEDS: METOPROLOL TARTRATE 25 MG TAB PO SCH (10:50)
[2019-06-26] MEDS: HCTZ 25 MG TAB PO SCH (10:50)
[2019-06-26] MEDS: BENAZEPRIL HCL 10 MG TAB PO SCH (10:51)
--- NOTE | 2019-06-26 12:00 | NUR ---
Dressing changed to right foot removed old dressing cleansed with wound cleanser, padded dry. Wound photos obtained for dc. Applied therahoney and telfa, wrapped with elastic bandage as ordered. Patient tolerated well. Wound photo forms placed in chart. Awaiting transport to [facility].
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
--- NOTE | 2019-06-26 12:40 | NUR ---
Discharge instructions given as ordered. Encourage to follow up with PMD as instructed. All questions and concerns addressed. Patient verbalized understanding. Medication reconciliation form completed and copy given to patient. IV removed with catheter intact, pressure dressing applied. Awaiting [facility] transport at this time. Doctor Ondina aware
--- NOTE | 2019-06-26 12:47 | NUR ---
Report called to Christiane receiving nurse at [facility]. Copy of chart including discharge summary sent with patient and nurse aware. Awaiting [facility] transport at this time.
[2019-06-26 13:00] VITALS: BP 140/106
--- NOTE | 2019-06-26 15:46 | NUR ---
Regarding transport transport states "they're already in the hospital in 5 minutes". Awaiting transport at this time
--- NOTE | 2019-06-26 16:15 | NUR ---
Patient taken to vehicle via stretcher with all personal belongings including wheelchair, accompanied by transport staff. Patient refused to have family members notified of transfer to [facility]. No distress noted at time of departure.
== END 2019-06-26 16:15 | DRG 420 ==
LOC: EDBD 21:11 → ER 21:14 → OVERFLOW 21:15 → CENTRAL 06-21 11:15
PROVIDERS: ADMIT Nurse Practitioner; ATTEND Internal Medicine
DX: E11.621 Type 2 diabetes mellitus with foot ulcer (principal); E43 Unspecified severe protein-calorie malnutrition; I13.2 Hypertensive heart and chronic kidney disease with heart failure and with stage 5 chronic kidney disease, or end stage renal disease; L03.115 Cellulitis of right lower limb; E66.01 Morbid (severe) obesity due to excess calories; F11.20 Opioid dependence, uncomplicated; E11.22 Type 2 diabetes mellitus with diabetic chronic kidney disease; E11.628 Type 2 diabetes mellitus with other skin complications; I50.9 Heart failure, unspecified; N18.6 End stage renal disease; F19.20 Other psychoactive substance dependence, uncomplicated; F41.9 Anxiety disorder, unspecified; E78.00 Pure hypercholesterolemia, unspecified; F17.210 Nicotine dependence, cigarettes, uncomplicated; E11.65 Type 2 diabetes mellitus with hyperglycemia; I25.2 Old myocardial infarction; Z89.432 Acquired absence of left foot; Z88.0 Allergy status to penicillin; Z88.5 Allergy status to narcotic agent; Z90.89 Acquired absence of other organs; Z90.49 Acquired absence of other specified parts of digestive tract; Z91.19 Patient's noncompliance with other medical treatment and regimen; Z79.4 Long term (current) use of insulin; Z99.2 Dependence on renal dialysis; Z83.3 Family history of diabetes mellitus; Z68.35 Body mass index [BMI] 35.0-35.9, adult
CPT/HCPCS: 36415; 73700; 73718; 80048; 80053; 82962; 84484; 85025; 85379; 85610; 85730; 87040; 87077; 87081; 87186; 87205; 93005; 96374; 96375; 97163; G0378; J1815; J1956; J2405; J3490